=== PATIENT | female | born 1945 | race Caucasian/White ===

== ENCOUNTER → 2023-06-26 13:40 | Outpatient (REF) | payer MEDICARE, OTHER, SELFPAY | LOC: RCS 13:40 | PROVIDERS: ATTENDING PHYSICIAN Internal Medicine Cardiovascular Disease | DX: I10 Essential (primary) hypertension (principal); I35.1 Nonrheumatic aortic (valve) insufficiency | CPT/HCPCS: 93306 ==

== ENCOUNTER → 2024-06-24 13:01 | Outpatient (REF) | payer MEDICARE, OTHER, SELFPAY | LOC: RCS 13:01 | PROVIDERS: ATTENDING PHYSICIAN Internal Medicine Cardiovascular Disease | DX: I35.1 Nonrheumatic aortic (valve) insufficiency (principal); I10 Essential (primary) hypertension; I11.9 Hypertensive heart disease without heart failure; I51.7 Cardiomegaly | CPT/HCPCS: 93306 ==